=== PATIENT | male | born 1945 | race Caucasian/White ===

== ENCOUNTER 2018-08-11 11:13 | Outpatient (CLI) | payer OTHER ==
[~2018-08-11 11:13] MED LIST: ANTIVERT25 M1 PO; ATORVASTATIN CA10 MG PO; COZAAR25 MG; COZAAR25 MG PO; KETO10TA2 PO; NO TOMA MEDICAMENTOS; PROSCAR5 MG PO; PROTONIX40 MG PO; SKELAXIN800 MG PO; TAMS0.4C PO
== END 2018-08-11 11:18 | disposition home or self-care (01) ==
LOC: RAD 501 11:13
DX: I11.9 Hypertensive heart disease without heart failure (principal); R06.02 Shortness of breath

== ENCOUNTER 2018-12-26 11:38 | Outpatient (CLI) | payer OTHER ==
[~2018-12-26] VITALS: Ht 152.4 cm; Wt 90.7 kg
== END 2018-12-26 13:41 | disposition home or self-care (01) ==
LOC: OFIC 805 11:38
DX: J34.2 Deviated nasal septum (principal); H90.3 Sensorineural hearing loss, bilateral; G47.33 Obstructive sleep apnea (adult) (pediatric); H61.21 Impacted cerumen, right ear; J31.0 Chronic rhinitis

== ENCOUNTER 2021-01-04 13:03 | Emergency (ER) | payer OTHER ==
[~2021-01-04] VITALS: Ht 167.6 cm; Wt 80.7 kg
== END 2021-01-04 16:56 | disposition home or self-care (01) ==
LOC: ER 13:03
DX: R42 Dizziness and giddiness (principal)